=== PATIENT | female | born 1945 | race Two or more races ===

== ENCOUNTER 2025-02-14 11:41 | Inpatient (IN) | payer BC, MEDICARE ==
[~2025-02-14] VITALS: Ht 149.9 cm; Wt 56.7 kg
[2025-02-14] MEDS ORDERED: TETRACAINE 0.5% OPHTH DROPS 4ML LEFTEYE ONE (12:00)
[2025-02-14] MEDS ORDERED: KETOROLAC 30MG/ML VIAL IV ONE (12:00)
[2025-02-14] MEDS ORDERED: ACYCLOVIR 200MG CAPSULE PO ONE (12:00)
[2025-02-14] MEDS ORDERED: METHYLPREDNISOLONE SOD SUCC 125MG/2ML (ACT-O-VIAL) IV ONE (12:00)
[2025-02-14] MEDS ORDERED: ONDANSETRON HCL 4MG/2ML INJ IV ONE (12:00)
[2025-02-14] MEDS ORDERED: DIPHENHYDRAMINE 50MG/ML VIAL IV ONE (12:00)
[2025-02-14 12:29] LABS: BASOPHILS % 0.6 % (0.0-2.0); EOSINOPHILS % 1.7 % (0.0-5.0); HEMATOCRIT. 39.2 % (36.0-48.0); HEMOGLOBIN. 13.2 g/dL (12.0-16.0); LYMPHOCYTES % 27.5 % (20.0-50.0); MEAN PLATELET VOLUME 8.4 fl (7.4-10.4); MONOCYTES % 12.5 % (2.0-8.0); NEUTROPHILS % 57.7 % (40.0-76.0); PLATELET 220 x1000/uL (130-400); RED BLOOD CELL COUNT 3.96 mill/uL (4.2-5.4); RED CELL DISTRIBUTION WIDTH 18.0 % (11.6-14.6)
[2025-02-14 12:42] LABS: INR 0.9
[2025-02-14 13:01] LABS: CREATININE 1.0 mg/dL (0.6-1.0); UREA NITROGEN BLOOD 13 mg/dL (9-23)
[2025-02-14 13:03] LABS: ASPARTATE AMINOTRANSFERASE 15 IU/L (<34); BILIRUBIN DIRECT 0.3 mg/dL (<=3.0); BILIRUBIN TOTAL 1.1 mg/dL (0.1-1.0); PROTEIN TOTAL 7.9 g/dL (6.0-8.3)
[2025-02-14 13:39] LABS: CLARITY URINE CLEAR (CLEAR); COLOR URINE YELLOW (YELLOW); GLUCOSE URINE NEGATIVE (NEGATIVE); KETONES URINE TRACE (NEGATIVE); LEUKOCYTE ESTERASE URINE 3+ (NEGATIVE); NITRITE URINE NEGATIVE (NEGATIVE); OCCULT BLOOD URINE TRACE (NEGATIVE); PH URINE 8.0 (4.5-8.0); PROTEIN URINE NEGATIVE (NEGATIVE); SPECIFIC GRAVITY URINE 1.011 (1.005-1.030); UROBILINOGEN URINE 1.0 E.U./dL (0.2-1.0)
[2025-02-14 13:52] LABS: SQUAMOUS EPITHELIAL CELL URINE FEW /lpf (RARE/1+); WBC URINE TNTC /hpf (0-2)
[2025-02-14 13:53] LABS: BACTERIA URINE 3+; RBC URINE 0-2 /hpf (0-2)
[2025-02-14] MEDS ORDERED: ACYCLOVIR 200MG CAPSULE PO NR (14:15)
[2025-02-14] MEDS: ONDANSETRON HCL 4MG/2ML INJ IV NR (14:32)
[2025-02-14] MEDS: METHYLPREDNISOLONE SOD SUCC 125MG/2ML (ACT-O-VIAL) IV NR (14:33)
[2025-02-14] MEDS: DIPHENHYDRAMINE 50MG/ML VIAL IV NR (14:35)
[2025-02-14] MEDS: TETRACAINE 0.5% OPHTH DROPS 4ML LEFTEYE NR (14:37)
[2025-02-14] MEDS: KETOROLAC 30MG/ML VIAL IV NR (14:37)
[2025-02-14] MEDS: FLUORESCEIN SODIUM 1MG/STRIP LEFTEYE ONE (14:45)
[2025-02-14] MEDS: CIPROFLOXACIN 0.3% OPHTH SOLN 2.5ML LEFTEYE STA (16:11)
[2025-02-14] MEDS: SODIUM CHLORIDE 0.9% (SEPSIS BOLUS) IV ONE (17:19)
[2025-02-14] MEDS: PIPERACILLIN/TAZO 3.375G/50ML 50 ML IV ONE (17:19)
[2025-02-14] MEDS: VANCOMYCIN 1G PREMIX 200 ML IV ONE (17:38)
[2025-02-14] MEDS ORDERED: ACETAMINOPHEN 650MG/20.3ML UDC GT PRN (19:00)
[2025-02-14] MEDS ORDERED: CLONIDINE 0.1MG TABLET PO PRN (19:00)
[2025-02-14] MEDS ORDERED: MORPHINE SULFATE 2 MG/ML INJ (NOT FOR IM USE) IV PRN (19:00)
[2025-02-14 20:00] VITALS: BP 136/84; PULSE 84; RESP 18; TEMP 36.4; O2SAT 95
[2025-02-14] MEDS: ENOXAPARIN 40MG/0.4ML SYR SUBCUT SCH (21:58)
[2025-02-14] MEDS: ACYCLOVIR IV STA (21:58)
[2025-02-14] MEDS: DEXT 5% IV STA (21:58)
[2025-02-14] MEDS: WATER IV STA (21:58)
[2025-02-14] MEDS: SODIUM CHLORIDE 0.9% 1,000 ML IV SCH (21:59)
[2025-02-14] MEDS: HYDROCODONE/ACETAMINOPHEN 5/325MG TABLET PO PRN (22:18)
[2025-02-14 23:13] VITALS: BP 136/84; PULSE 84; RESP 20; TEMP 36.4
[2025-02-15] VITALS: BP 159/83; PULSE 91; RESP 16; TEMP 36.7; O2SAT 96
[2025-02-15 04:00] VITALS: BP 112/67; PULSE 88; RESP 18; TEMP 36.7; O2SAT 98
[2025-02-15 06:28] LABS: BASOPHILS % 0.1 % (0.0-2.0); EOSINOPHILS % 0.0 % (0.0-5.0); HEMATOCRIT. 32.3 % (36.0-48.0); HEMOGLOBIN. 11.3 g/dL (12.0-16.0); LYMPHOCYTES % 19.7 % (20.0-50.0); MEAN PLATELET VOLUME 8.7 fl (7.4-10.4); MONOCYTES % 1.9 % (2.0-8.0); NEUTROPHILS % 78.3 % (40.0-76.0); PLATELET 186 x1000/uL (130-400); RED BLOOD CELL COUNT 3.29 mill/uL (4.2-5.4); RED CELL DISTRIBUTION WIDTH 17.7 % (11.6-14.6)
[2025-02-15 06:46] LABS: CREATININE 0.9 mg/dL (0.6-1.0)
[2025-02-15 06:48] LABS: UREA NITROGEN BLOOD 16 mg/dL (9-23)
[2025-02-15 06:50] LABS: PHOSPHORUS 2.2 mg/dL (2.5-4.9)
[2025-02-15 08:00] VITALS: BP 105/65; PULSE 83; RESP 19; TEMP 36.4; O2SAT 96
[2025-02-15 12:00] VITALS: BP 120/62; PULSE 74; RESP 17; TEMP 37; O2SAT 95
[2025-02-15] MEDS: CEFTRIAXONE 1GM/50ML 50 ML IV SCH (12:26)
[2025-02-15] MEDS: ACYCLOVIR 400 MG TABLET PO SCH (12:27)
[2025-02-15] MEDS ORDERED: ACYCLOVIR 200MG CAPSULE PO SCH (14:00)
[2025-02-15 16:00] VITALS: BP 129/76; PULSE 71; RESP 17; TEMP 36.8; O2SAT 97
[2025-02-15 20:00] VITALS: BP 147/56; PULSE 66; RESP 19; TEMP 37.1; O2SAT 98
[2025-02-16] VITALS: BP 118/64; PULSE 76; RESP 18; TEMP 36.5; O2SAT 95
[2025-02-16 04:00] VITALS: BP 136/59; PULSE 75; RESP 18; TEMP 36.4; O2SAT 96
[2025-02-16 08:00] VITALS: BP 148/80; PULSE 76; RESP 17; TEMP 37.1; O2SAT 98
[2025-02-16] MEDS ORDERED: NON FORMULARY MED XX SCH (10:00)
[2025-02-16] MEDS ORDERED: METO25TA6 PO (10:10)
[2025-02-16] MEDS ORDERED: OMEP20CA14 PO (10:10)
[2025-02-16] MEDS ORDERED: ATOR20TA65 PO (10:10)
[2025-02-16] MEDS ORDERED: LOSA50TA41 PO (10:10)
[2025-02-16] MEDS ORDERED: NALOXONE HCL 0.4MG/ML VIAL IV PRN (10:15)
[2025-02-16] MEDS: CIPROFLOXACIN 0.3% OPHTH SOLN 2.5ML BOTHEYE SCH (11:37)
[2025-02-16 12:00] VITALS: BP 144/77; PULSE 74; RESP 17; TEMP 36.3; O2SAT 97
[2025-02-16 16:00] VITALS: BP 125/76; PULSE 81; RESP 18; TEMP 35.9; O2SAT 97
[2025-02-16] MEDS: ENOXAPARIN 30MG/0.3ML SYR SUBCUT SCH (18:11)
[2025-02-16 20:00] VITALS: BP 131/75; PULSE 83; RESP 20; TEMP 37.4; O2SAT 97
[2025-02-17] VITALS (7 sets, daily range): BP systolic 105–136; BP diastolic 53–74; PULSE 72–85; RESP 16–20; TEMP 37–38.4; O2SAT 97–98
[2025-02-17] MEDS: ACYCLOVIR INJ 500 MG in DEXT 5% WATER 100 ML IV SCH (13:11)
[2025-02-17] MEDS: ACETAMINOPHEN 650MG/20.3ML UDC PO PRN (20:20)
[2025-02-17] MEDS: DOCUSATE SODIUM 100MG CAPSULE PO SCH (23:30)
[2025-02-18] VITALS: BP 118/46; PULSE 74; RESP 18; TEMP 36.3; O2SAT 98
[2025-02-18 04:00] VITALS: BP 120/60; PULSE 70; RESP 18; TEMP 36.3; O2SAT 98
[2025-02-18] MEDS: LACTULOSE 20G/30ML UDC PO SCH (05:38)
[2025-02-18 08:00] VITALS: BP 128/75; PULSE 78; RESP 18; TEMP 37; O2SAT 97
[2025-02-18 12:00] VITALS: BP 120/71; PULSE 74; RESP 16; TEMP 36.6; O2SAT 96
[2025-02-18 16:00] VITALS: BP 140/82; PULSE 87; RESP 16; TEMP 36.7; O2SAT 100
[2025-02-18 18:43] LABS: BASOPHILS % 0.4 % (0.0-2.0); EOSINOPHILS % 2.0 % (0.0-5.0); HEMATOCRIT. 33.8 % (36.0-48.0); HEMOGLOBIN. 11.4 g/dL (12.0-16.0); LYMPHOCYTES % 26.9 % (20.0-50.0); MEAN PLATELET VOLUME 9.1 fl (7.4-10.4); MONOCYTES % 13.6 % (2.0-8.0); NEUTROPHILS % 57.1 % (40.0-76.0); PLATELET 180 x1000/uL (130-400); RED BLOOD CELL COUNT 3.37 mill/uL (4.2-5.4); RED CELL DISTRIBUTION WIDTH 17.8 % (11.6-14.6)
[2025-02-18 19:05] LABS: CREATININE 0.7 mg/dL (0.6-1.0); UREA NITROGEN BLOOD 17 mg/dL (9-23)
[2025-02-18 20:00] VITALS: BP 165/82; PULSE 92; RESP 19; TEMP 36.8; O2SAT 94
[2025-02-19] VITALS: BP 127/77; PULSE 80; RESP 16; TEMP 36.9; O2SAT 97
[2025-02-19 04:00] VITALS: BP 139/74; PULSE 76; RESP 16; TEMP 36.7; O2SAT 95
[2025-02-19 08:00] VITALS: BP_SYST 102; BP_SYST 98; BP_DIAS 75; PULSE 71; PULSE 80; RESP 17; TEMP 36.7; O2SAT 95; O2SAT 98
[2025-02-19 12:00] VITALS: BP 118/70; PULSE 83; RESP 18; TEMP 36.1; O2SAT 98
[2025-02-19] MEDS ORDERED: CIPR2.5D17 LEFTEYE (13:06)
[2025-02-19] MEDS ORDERED: VALA100044 PO (13:06)
[2025-02-19] MEDS: TRIFLURIDINE 1% EACHEYE SCH (14:00)
[2025-02-19 16:00] VITALS: BP 120/80; PULSE 88; RESP 18; TEMP 36.7; O2SAT 98
[2025-02-19 20:00] VITALS: BP 120/61; PULSE 83; RESP 17; TEMP 36.7; O2SAT 96
[2025-02-19] MEDS: ONDANSETRON HCL 4MG/2ML INJ IV PRN (23:50)
[2025-02-20] VITALS: PULSE 78; RESP 18; TEMP 36.8; O2SAT 96
[2025-02-20 08:00] VITALS: BP 131/62; PULSE 76; RESP 18; TEMP 36.4; O2SAT 96
[2025-02-20 12:00] VITALS: BP 107/55; PULSE 76; RESP 18; TEMP 36.5; O2SAT 100
[2025-02-20 15:36] VITALS: BP 107/55; PULSE 76; TEMP 97.7; O2SAT 100
[2025-02-20 16:30] VITALS: BP 151/81; PULSE 73; RESP 18; TEMP 36.5; O2SAT 100
== END 2025-02-20 16:09 | disposition home or self-care (01) | DRG 125 ==
LOC: ER 11:41 → 7EST 16:46 → EDBEDREQTM 16:48 → EDBEDREQ 16:48 → ENRESERV 16:53 → 7EST 19:51
PROVIDERS: ADMIT Internal Medicine Nephrology; ATTEND Internal Medicine Nephrology
DX: B02.30 Zoster ocular disease, unspecified (principal); N39.0 Urinary tract infection, site not specified; E87.20 Acidosis, unspecified; D72.819 Decreased white blood cell count, unspecified; I10 Essential (primary) hypertension; K46.9 Unspecified abdominal hernia without obstruction or gangrene; K59.00 Constipation, unspecified
CPT/HCPCS: 36415; 70480; 74176; 80048; 80076; 81003; 83605; 83735; 84100; 84145; 85025; 93005; 99285; A4606; J0133; J0696; J1200; J1650; J1885; J2405; J2543; J2919; J3373; J7030; J7060